=== PATIENT | male | born 1985 | race Caucasian/White ===

== ENCOUNTER → 2024-03-30 09:34 | Outpatient (REF) | payer OTHER, SELFPAY | LOC: HWRAD 09:34 | PROVIDERS: ATTENDING PHYSICIAN Nurse Practitioner Family | DX: M25.561 Pain in right knee (principal) | CPT/HCPCS: 73564 ==

== ENCOUNTER 2025-03-22 06:21 | Day surgery (SDC) | payer OTHER, SELFPAY ==
[2025-03-22] VITALS (7 sets, daily range): BP systolic 106–119; BP diastolic 62–76; BMI 24.5
[2025-03-22] MEDS: CELEBREX 200 MG PO (11:57)
[2025-03-22] MEDS: TYLENOL 1000 MG PO (11:57)
[2025-03-22] MEDS: NORMOSOL-R/PLASMALYTE-A 1000 IV (12:13)
== END 2025-03-22 16:32 | disposition home or self-care (01) ==
LOC: SDS 06:21
PROVIDERS: ATTENDING PHYSICIAN Specialist
DX: S83.241A Other tear of medial meniscus, current injury, right knee, initial encounter (principal); X58.XXXA Exposure to other specified factors, initial encounter; M17.11 Unilateral primary osteoarthritis, right knee; M51.26 Other intervertebral disc displacement, lumbar region
CPT/HCPCS: 29881